=== PATIENT | female | born 2000 | race Caucasian/White ===

== ENCOUNTER 2019-10-27 09:20 | Observation (INO) | payer OTHER, SELFPAY ==
--- NOTE | 2019-10-27 09:45 | OBADM ---
This patient, Kathryn Moran, admitted to the OB room Labor/Delivery/Recovery 106 for observation. Patient/family oriented to hospital policies and general routines including ID bracelet, bed and alarms, visiting hours, pain management, procedures, bathroom and other care routines, personal items, smoking policy, room service/diet, and visiting hours. Patient/Family are encouraged to report perceived risks to care and to ask questions if they do not understand what they are told or what they should do.
[2019-10-27 10:00] VITALS: BP 104/67; PULSE 85
[2019-10-27 10:22] VITALS: BMI 25.7
[2019-10-27 10:26] LABS: Add Urine Microscopic? NO; Appearance Urine Clear (Clear); Bilirubin Urine Negative (Negative); Blood Urine Negative (Negative); Color Urine Yellow (Yellow); Glucose Urine UA Negative (Negative); Ketones Urine Negative (Negative); Leukocyte Esterase Ur Negative LEU/UL (Negative); Nitrate Urine Negative (Negative); Protein Urine Negative (Negative); Specific Grav Ur 1.011 (1.001-1.035); Urobilinogen Urine Negative mg/dL (<2.0)
[2019-10-27 10:30] VITALS: BP 98/62; PULSE 85
--- NOTE | 2019-10-27 11:42 | PC.NURSE ---
Addendum entered by Lety Edwards RN 10/27/19 11:44: above note was entered for time 1100. Original Note: adelina yanm reported pt admission for r/o ROM and contractions. report given for negative ROM plus, and reactive tracing. discharge order received.
--- NOTE | 2019-10-30 13:29 | PM.OBTRLD ---
OB - Triage/Final Diagnosis Visit Information Date of evaluation: 10/27/19 Reason for evaluation: threatened labor Evaluation Laboratory results: Laboratory Tests 10/27/19 10:13 Urine Color Yellow Urine Appearance Clear Urine pH 7.0 Ur Specific [place] 1.011 Urine Protein Negative Urine Glucose (UA) Negative Urine Ketones Negative Ur Blood (Man) Negative Urine Nitrate Negative Urine Bilirubin Negative Urine Urobilinogen Negative Leukocyte Esterase Rfl Negative
== END 2019-10-27 11:30 | disposition home or self-care (01) ==
PROVIDERS: Advanced Practice Midwife; Admitting Provider Obstetrics & Gynecology; PCP Physician Assistant; Visit Provider Obstetrics & Gynecology
DX: O47.03 False labor before 37 completed weeks of gestation, third trimester (principal); Z3A.34 34 weeks gestation of pregnancy
CPT/HCPCS: 81003; 84112; G0378; G0379

== ENCOUNTER 2019-12-05 18:52 | Inpatient (IN) | payer OTHER, SELFPAY ==
[2019-12-05 20:00] VITALS: TEMP 35.5
[2019-12-05 20:01] LABS: Basophils Absolute Auto 0.1 K/mm3 (0.0-0.1); Basophils Percent Auto 0.6 % (0.2-1.2); Eosinophils Absolute Auto 0.2 K/mm3 (0-0.3); Eosinophils Percent Auto 1.6 % (0-4.4); Hematocrit 33.2 % (37.0-47.0); Hemoglobin 11.1 g/dL (12.0-15.0); Immature Granulocyte Absolute 0.04 K/mm3 (0.00-0.031); Immature Granulocyte Percent A 0.4 % (0-0.5); Lymphocytes Absolute Auto 1.78 K/mm3 (0.9-3.2); Mean Corpuscular HGB Conc 33.4 g/dl (32-36); Mean Corpuscular Volume 86.7 fl (80-100); Mean Platelet Volume 10.9 fl (7.4-10.4); Monocytes Absolute Auto 0.6 K/mm3 (0.1-0.6); Monocytes Percent Auto 6.4 % (2.6-8.5); Neutrophils Absolute Auto 6.8 K/mm3 (1.3-6.7); Platelet Count Result 194 k/mm3 (150-375); Red Blood Count 3.83 M/mm3 (4.2-5.4); Red Cell Distribution Width 12.7 % (11.5-14.5); White Blood Count 9.4 K/mm3 (4.5-10.0)
[2019-12-05] MEDS: DINOPROSTONE 10 MG VAG INSERT VAGINAL (20:02)
[2019-12-05 20:06] VITALS: BP 119/67; PULSE 54
[2019-12-05 20:31] VITALS: BP 103/54; PULSE 62
[2019-12-05 20:43] VITALS: BMI 26.7
--- NOTE | 2019-12-05 20:44 | LDADM ---
This patient, Kathryn Moran, was admitted to Labor/Delivery/Recovery 102 on 12/05/19 at 18:52. Plans for labor, pain management and were discussed with patient. Patient/family oriented to hospital policies and general routines including ID bracelet, bed and alarms, visiting hours, pain management, procedures, bathroom and other care routines, personal items, smoking policy, room service/diet and guest tray routines, security routines, and visiting hours. Patient/Family are encouraged to report perceived risks to care and to ask questions if they do not understand what they are told or what they should do. See OBIX for further documentation.
[2019-12-05] MEDS: AMPICILLIN 2 GM/NS 100 ML 2 GM/100 ML BAG IVPB (20:58)
[2019-12-05] MEDS: LACTATED RINGERS 1,000 ML 125 ML IV CONT (20:58)
--- NOTE | 2019-12-05 21:00 | WPDANESEPPF ---
Anes - Initial Pre Proc Eval Procedure: labor epidural Date/Time: 12/05/19 21:00 Surgeon: Genesis Sorto MD Pre Op Diagnosis: labor pain Pre Op Diagnosis: Induction of Labor Patient Data Age: 19 Gender: F Height: 1.66 m Weight: 74 kg Last Vital Signs Pulse 62 12/05/19 20:31 BP 103/54 L 12/05/19 20:31 Allergies Allergy/AdvReac Type Severity Reaction Status Date / Time No Known Allergies Allergy Verified 11/06/19 12:32 Home Medications Medication Instructions Recorded Confirmed Type PNV cmb#95-ferrous fumarate-FA 1 tablet PO DAILY 11/06/19 11/06/19 History [] lansoprazole [Prevacid] 15 mg PO DAILY 11/06/19 12/05/19 History Laboratory Tests 12/05/19 12/05/19 19:52 19:52 WBC 9.4 K/mm3 K/mm3 (4.5-10.0) RBC 3.83 M/mm3 L M/mm3 (4.2-5.4) Hgb 11.1 g/dL L g/dL (12.0-15.0) Hct 33.2 % L % (37.0-47.0) MCV 86.7 fl fl (80-100) MCH 29.0 pg pg (26-34) MCHC 33.4 g/dl g/dl (32-36) RDW 12.7 % % (11.5-14.5) Plt Count 194 k/mm3 k/mm3 (150-375) MPV 10.9 fl H fl (7.4-10.4) Immature Gran % (Auto) 0.4 % % (0-0.5) Neut % (Auto) 72.0 % % (45.5-73.1) Lymph % (Auto) 19.0 % % (18.3-44.2) [place] % (Auto) 6.4 % % (2.6-8.5) Eos % (Auto) 1.6 % % (0-4.4) Baso % (Auto) 0.6 % % (0.2-1.2) Lymph # (Auto) 1.78 K/mm3 K/mm3 (0.9-3.2) [place] # (Auto) 0.6 K/mm3 K/mm3 (0.1-0.6) Eos # (Auto) 0.2 K/mm3 K/mm3 (0-0.3) Baso # (Auto) 0.1 K/mm3 K/mm3 (0.0-0.1) Abs Immat Gran (auto) 0.04 K/mm3 H K/mm3 (0.00-0.031) Absolute Neuts (auto) 6.8 K/mm3 H K/mm3 (1.3-6.7) Absolute Nucleated RBC 0.0 K/mm3 K/mm3 (0.0-0.012) Nucleated RBC % 0.0 % % (0.0-0.2) RPR Pending Patient hx anesthesia problems: none Family hx anesthesia problems: none [facility] Past Medical History Medical History (Updated 12/05/19 @ 21:01 by Kalyan Dsouza CRNA) Heart murmur Psoriasis Family History Family History Other Unknown family medical history Social History Social History Smoking status: Never smoker Substance use: never Spiritual care concerns: No Anes - Eval Final PreProcedure Day of Procedure 12/05/19 21:00 Patient weight: normal Heart: regular rate and rhythm Lungs: clear to auscultation and normal air movement Airway: Mallampati scale class II Neurological: alert and oriented ASA classification: II Anesthesia type and monitoring: regional epidural and standard monitoring Informed Consent: The patient's anesthetic plan and its attendant risks and benefits were discussed with the patient/family/POA. Questions were solicited and answers provided to the satisfaction of the patient/family/POA.
[2019-12-05 21:01] VITALS: BP 102/51; PULSE 64
[2019-12-05 21:31] VITALS: BP 104/48; PULSE 64
[2019-12-05 22:01] VITALS: BP 101/44; PULSE 62
[2019-12-06] VITALS (71 sets, daily range): BP systolic 84–132; BP diastolic 49–106; PULSE 57–294; RESP 14–18; TEMP 36.5–36.8; O2SAT 98–100
[2019-12-06] MEDS: LACTATED RINGERS 1,000 ML 125 ML IV CONT ×2 (01:13→02:30)
[2019-12-06] MEDS: AMPICILLIN 1 GM/NS 50 ML 1 GM/50 ML BAG IVPB (01:31)
--- NOTE | 2019-12-06 04:12 | PM.OBPRVD ---
OB - Delivery Note Procedure Delivery date: 12/06/19 Procedure: vaginal delivery Induction method: AROM and per misoprostol protocol Delivery monitor: external FHT and external uterine Route of delivery: Laceration description: Vaginal - 1st Degree (right) Delivery repair: vicryl Specimen: No Estimated blood loss (mL): 197 Anesthesia type: Epidural Disposition: other (vaginal delivery) Complications: mother and baby in stable condition Baby Date of : 12/06/19 Time of : 03:51 Weeks of gestation at delivery: 40 Infant gender: Male Weight (pounds): 7 Weight (ounces): 8 presentation: vertex position: Right Mentum Anterior Placenta delivery description: Spontaneous cord vessel description: 3 Vessels, Nuchal Cord, Loose, Reduced and Clamped/Cut score one minute: 9 score five minutes: 9
[2019-12-06] MEDS: OXYTOCIN 30 UNITS/NS 500 ML 30 UNITS/500 ML BAG 125 UNITS IV CONT (05:00)
[2019-12-06] MEDS: BENZOCAINE 20% AER SPR (*SP) 56 GM CAN 1 SPRAY TOPICAL (06:39)
[2019-12-06] MEDS: WITCH HAZEL 40 PADS 1 PAD TOPICAL (06:39)
[2019-12-06 07:26] LABS: Rapid Plasma Reagin Non-Reactive (NonReactive)
--- NOTE | 2019-12-06 07:43 | PC.NURSE ---
Patient transferred to post room #280. Support person present. Oriented to unit, room, information board, rooming in, admission packet and security measures. Patient verbalizes understanding.
[2019-12-06] MEDS: DOCUSATE SODIUM 100 MG CAPSULE PO ×2 (09:18→16:41)
[2019-12-06] MEDS: IBUPROFEN 600 MG TABLET PO ×2 (09:18→16:40)
[2019-12-06] MEDS: ACETAMINOPHEN 325 MG TABLET 650 MG PO (13:38)
[2019-12-06] MEDS: POLYSACCHARIDE IRON COMPLEX 150 MG CAPSULE PO (16:41)
[2019-12-07] MEDS: ACETAMINOPHEN 325 MG TABLET 650 MG PO (05:09)
[2019-12-07] MEDS: IBUPROFEN 600 MG TABLET PO (05:10)
[2019-12-07 05:43] LABS: Hematocrit 25.6 % (37.0-47.0); Hemoglobin 8.4 g/dL (12.0-15.0)
[2019-12-07 08:00] VITALS: BP 97/49; PULSE 63; RESP 18; TEMP 36.8
--- NOTE | 2019-12-07 08:09 | P.PNOB_ITS ---
OB - PN: Subj Subjective Date/time seen: 12/07/19 08:09 Patient comments: no complaints, pain well controlled, incisional pain, tolerating diet and flatus present OB - PN: Obj Data Labs CBC & Chem 7: 12/07/19 05:06 Labs: Laboratory Results - last 24 hr 12/07/19 05:06 Hgb 8.4 L Hct 25.6 L OB - PN A/P Plan day: 1 Plan: routine care Comments: No problems, routine care, to d/c Time Spent With Patient Time: Total time spent is greater than 50% in coordination of care (as documented) at patient's floor/unit and/or counseling patient: Exam Const: General: comfortable, no acute distress and alert Resp: Effort & Inspection: normal respiratory effort Auscultation: no crac kles, no rales and no rhonchi Cardio: Rate: regular rate Heart sounds: no click, no murmurs and no rubs GI: Inspection: non-distended GI Palp: No Tenderness to palpation present (GI) Auscultation: normal bowel sounds Other: Incision - CDI Extrem: General: normal to inspection, no pedal edema and no calf tenderness
--- NOTE | 2019-12-07 08:10 | PM.OBDSVD ---
DS: Discharge Diagnosis Discharge Diagnosis (1) Term delivered: Code(s): O80 - Encounter for full-term uncomplicated delivery Status: Acute OB - DS: Summary OB Procedures : None OB Procedures Intrapartum: Spontaneous Vag Delivery OB Procedures: : None Peripartum Data Delivery Method: Natural Vaginal complications: none Status at Discharge Functional status at discharge: independent ambulation Time Spent with Patient Time attestation: Total time spent providing and/or coordinating discharge services: DS: Data Data Completed and Pending Labs on day of discharge: Labs from last 24 hours 12/07/19 05:06 Hgb 8.4 L Hct 25.6 L Discharge Plan Discharge Discharging Clinician: Genesis Sorto Patient Disposition: Home, Self-Care Activity: pelvic rest Diet: regular Patient Instructions: Antibiotic Form Stand Alone Forms: General Discharge Information Follow-up/Referrals: Genesis Sorto MD [Physician] - Discharge Medications: Continued PNV cmb#95-ferrous fumarate-FA [] 28 mg iron- 800 mcg Tablet 1 tablet PO DAILY RF: 0 lansoprazole [Prevacid] 15 mg Capsule,Delayed Release(Dr/Ec) 15 mg PO DAILY RF: 0 Date of admission: 12/05/19 18:52 Primary Care Provider: Lisa,Vikram Admitting Provider: Genesis Sorto Attending physician on admission: Genesis Sorto
[2019-12-07] MEDS: POLYSACCHARIDE IRON COMPLEX 150 MG CAPSULE PO (08:49)
[2019-12-07] MEDS: DOCUSATE SODIUM 100 MG CAPSULE PO (08:49)
--- NOTE | 2019-12-07 09:50 | WPDANLDPN2 ---
Anes-Prog Note L&D Date/Time: 12/07/19 09:50 Comfortable throughout: labor and delivery Neuraxial method: epidural Epidural/Spinal procedure site: clean & non-tender Neuro status: Neuro function grossly intact. Cardiovascular status: normal Respiratory status: normal Airway patency: baseline Mental status: baseline Post-Op hydration status: normal Vital Signs: Last Vital Signs Temp 36.7 C 12/06/19 21:00 Pulse 61 12/06/19 21:00 Resp 14 12/06/19 21:00 BP 101/53 L 12/06/19 21:00 Pulse Ox 98 12/06/19 21:00 Post-procedural complaints: none Patient feedback: Patient satisfied with anesthetic care.
--- NOTE | 2019-12-07 10:00 | PC.NURSE ---
Patient viewed the discharge video Mother & Baby Care, The First Two Weeks . Patient was given the opportunity and encouraged to ask questions. Patient verbalized understanding of information shared and has been given the mother/baby guide for home reference.
--- NOTE | 2019-12-07 15:05 | PC.NURSE ---
Self care and infant care discharge instructions given to pt. including follow up visit date and time. Mother verbalized understanding. No questions or concerns verbalized.
[2019-12-08 10:19] VITALS: BP 102/55; PULSE 86; RESP 16; TEMP 36.7; O2SAT 99
== END 2019-12-07 16:30 | disposition home or self-care (01) | DRG 807 ==
LOC: ANHLDR 19:03 → ANHOB2 12-06 07:52
PROVIDERS: Advanced Practice Midwife; Admitting Provider Obstetrics & Gynecology; PCP Physician Assistant; Visit Provider Obstetrics & Gynecology
DX: O99.824 Streptococcus B carrier state complicating childbirth (principal); Z37.0 Single live birth; Z3A.40 40 weeks gestation of pregnancy; O69.81X0 Labor and delivery complicated by cord around neck, without compression, not applicable or unspecified; O70.0 First degree perineal laceration during delivery; O99.72 Diseases of the skin and subcutaneous tissue complicating childbirth; L40.9 Psoriasis, unspecified
CPT/HCPCS: 36415; 85014; 85018; 85025; 86592; 86850; 86900; 86901; A9270; J0290; J2590; J2795; J3010; J7120

== ENCOUNTER 2020-04-24 11:54 | Emergency (ER) | payer OTHER, SELFPAY ==
[2020-04-24 12:01] VITALS: BP 127/71; PULSE 94; RESP 16; TEMP 36.6; O2SAT 100
--- NOTE | 2020-04-24 12:07 | ED.URI ---
HPI - URI/Sore Throat General Chief Complaint: Upper Respiratory Infection Stated Complaint: sinus congestion/body aches/tired Time Seen by Provider: 04/24/20 11:58 Source: patient Mode of arrival: ambulatory Limitations: no limitations History of Present Illness HPI Narrative: 19-year-old female presents to [facility] with complaints of fatigue, body aches, sinus pressure and nasal congestion for the past 3 days. Patient has been taking [id number] Tylenol with minimal relief. Patient denies sick contacts. Patient denies recent travel. Patient is a non-smoker. Patient denies fever, chills, cough, shortness of breath or wheezing. MD elicited complaint: rhinorrhea, nasal congestion and sinus pain Onset (ago): day(s) (3) Able to tolerate fluids by mouth: Yes Exacerbating factors: nothing Treatments prior to arrival: acetaminophen Related Data Home Medications Medication Instructions Recorded Confirmed norethindrone-e.estradiol-iron tablet 04/24/20 [05/29 (28)] Allergies Allergy/AdvReac Type Severity Reaction Status Date / Time No Known Allergies Allergy Verified 11/06/19 12:32 Review of Systems Constitutional: Constitutional: Denies chills, Reports fatigue and Denies fever(s) ENT: Denies dysphagia, Denies dizziness, Denies epistaxis, Reports nasal congestion and Denies sore throat Cardiovascular: Cardiovascular: Denies chest pain, Denies rapid heart rate and Denies radiating jaw, neck or arm pain Respiratory: Respiratory: Denies chest congestion, Denies cough, Denies dyspnea and Denies wheezing Gastrointestinal: Gastrointestinal: Denies bloating, Denies constipation, Denies diarrhea, Denies nausea and Denies vomiting Integumentary/Breasts: Skin/Breast: Denies rash Neurologic: Denies vertigo, Denies dizziness, Denies syncope and Denies focal weakness Endocrine: Endocrine: Reports fatigue PMFSH Past Medical History Medical History Heart murmur Psoriasis Family History Family History Other Unknown family medical history Social History Social History Smoking status: Never smoker Substance use: never Spiritual care concerns: No Comments At time of signature, I agree with nursing past medical, surgical, social and family history. There is no relevant family history pertinent to the presenting complaint. Exam Const: General: no acute distress and alert Nutritional Appearance: well nourished Orientation/consciousness: patient oriented x3 HENMT: Head: normal to inspection Ears: TM's normal bilaterally General nose exam: Normal nares present Face and sinus: sinuses nontender Mouth: Yes lip normal and Yes moist mucous membranes Throat: posterior oropharynx normal and uvula midline Neck: Neck: normal visual inspection and no lymphadenopathy Resp: Effort & Inspection: normal respiratory effort and not tachypneic Auscultation: clear to auscultation bilaterally, no crackles and lung sounds not diminished Cardio: Rate: regular rate Rhythm: regular rhythm Skin: General skin exam: normal color, no jaundice and no pallor Rashes: no rashes Wounds: no wounds Neuro: General: patient oriented x3, moves all extremities, no meningeal signs and no focal motor deficits Speech: normal speech Psych: Appearance: grossly normal Mental Status: mental status grossly normal Affect: normal affect Attitude: cooperative Thought content: Yes Normal thought content present Course Vital Signs Vital signs: Vital Signs Temperature 36.6 C 04/24/20 12:01 Pulse Rate 94 04/24/20 12:01 Respiratory Rate 16 04/24/20 12:01 Blood Pressure 127/71 04/24/20 12:01 Pulse Oximetry 100 04/24/20 12:01 Temperature 36.6 C 04/24/20 12:01 Pulse Rate 94 04/24/20 12:01 Respiratory Rate 16 04/24/20 12:01 Blood Pressu
== END 2020-04-24 12:25 | disposition home or self-care (01) ==
PROVIDERS: Emergency Provider Nurse Practitioner Family; PCP Physician Assistant
DX: J06.9 Acute upper respiratory infection, unspecified (principal); Z20.828 Contact with and (suspected) exposure to other viral communicable diseases; R01.1 Cardiac murmur, unspecified
CPT/HCPCS: 87804; 99213; G0463

== ENCOUNTER 2020-04-24 12:21 | Outpatient (NON) | payer OTHER, SELFPAY ==
[2020-04-24 22:31] LABS: SARS-CoV-2 RNA PCR Positive
== END 2020-04-24 12:22 ==
LOC: ANHCOVIDDT 12:22
PROVIDERS: PCP Physician Assistant; Visit Provider Nurse Practitioner Family
DX: U07.1 COVID-19 (principal)
CPT/HCPCS: 87635; C9803; U0003

== ENCOUNTER 2021-04-30 13:14 | Outpatient (CLI) | payer OTHER, SELFPAY ==
--- NOTE | ~2021-04-30 | US_ITS ---
EXAMINATION: US pelvic complete w TV DATE: 04/30/2021 14:07 INDICATION: Pelvic and perineal pain Comparison:No prior studies for comparison. TECHNIQUE: Multiple transabdominal and endovaginal sonographic images of the pelvis performed. FINDINGS: The uterus measures 8.3 x 5.2 x 4.2 cm. There is an IUD located in the endometrium. The end ometrial complex measures 5 mm. The right ovary measures 2.4 x 1.6 x 2 cm and the left ovary measures 2.5 x 2 x 1.9 cm. There are sm all follicles in each ovary. Normal doppler signal in both ovaries. There is no free fluid in the pelvis. There are no abnormal masses seen on either side. IMPRESSION: 1. Unremarkable pelvic ultrasound. IUD in expected position located in the endometrium. Reviewed, dictated and finalized at location A. [employer] MANAGER IMPRESSION: 1. Unremarkable pelvic ultrasound. IUD in expected position located in the endo metrium.
== END 2021-04-30 13:15 | disposition home or self-care (01) ==
LOC: ANHIMG 13:18
PROVIDERS: PCP Physician Assistant; Visit Provider Advanced Practice Midwife
DX: R10.2 Pelvic and perineal pain (principal); Z97.5 Presence of (intrauterine) contraceptive device
CPT/HCPCS: 76830; 76856

== ENCOUNTER → 2021-05-14 09:53 | Outpatient (CLI) | payer OTHER, SELFPAY ==
[2021-05-15 14:36] LABS: SARS-CoV-2 RNA PCR Positive
== END ==
PROVIDERS: PCP Physician Assistant; Visit Provider Physician Assistant
DX: U07.1 COVID-19 (principal)
CPT/HCPCS: C9803; U0003; U0005

== ENCOUNTER 2023-07-14 08:54 | Emergency (ER) | payer OTHER, SELFPAY ==
[2023-07-14 09:09] VITALS: BP 110/63; PULSE 83; RESP 16; TEMP 36.8; O2SAT 100
--- NOTE | 2023-07-14 09:13 | ED.URI ---
HPI - URI/Sore Throat General Chief Complaint: Upper Respiratory Infection Stated Complaint: Sinus/Bodyaches Time Seen by Provider: 07/14/23 09:13 Source: patient Mode of arrival: ambulatory Limitations: no limitations History of Present Illness HPI Narrative: 22-year-old female presents with complaint of nasal congestion, sinus pressure, bilateral ear pain and pressure, postnasal drainage intermittent sore throat and coughing for the last 7-8 days. Reports over the past 2 days has had low-grade fever with worsening of sinus symptoms. Patient taking Mucinex, Benadryl without relief of symptoms. Patient concerned for bacterial sinusitis. All systems reviewed and negative except as noted above. Related Data Home Medications Medication Instructions Recorded Confirmed norethindrone 1 mg-ethinyl 1 tablet PO DAILY 04/24/20 07/14/23 estradiol 20 mcg (21)-iron 75 mg (7) tablet (05/29 (28)) Allergies Allergy/AdvReac Type Severity Reaction Status Date / Time No Known Allergies Allergy Verified 07/14/23 09:07 Review of Systems Review of Systems: CONSTITUTIONAL: Denies fever, chills, or sweats. EYES: Denies visual changes, redness, or discharge. ENT: Reports rhinorrhea, congestion, sinus pressure, sore throat, and otalgia. CARDIOVASCULAR: Denies chest pain, palpitations, or edema. RESPIRATORY: reports cough. Denies dyspnea. GASTROINTESTINAL: Denies abdominal pain, nausea, vomiting, or diarrhea. GENITOURINARY: Denies dysuria or hematuria. SKIN: Denies rash or itching. MUSCULOSKELETAL: Denies back pain, joint pain, or myalgia. NEUROLOGIC: Denies headache, numbness, or weakness. PSYCHIATRIC: Denies anxiety or depression. All other systems reviewed are negative, except as documented in HPI. [facility] Past Medical History Medical History Heart murmur Psoriasis Family History Family History (System 04/25/20 @ 14:45 by Tawny Zavaleta) Other Unknown family medical history Social History Social History (System 04/25/20 @ 14:45 by Tawny Zavaleta) Smoking status: Never smoker Substance use: never Spiritual care concerns: No Comments At time of signature, agree with nursing past medical, surgical, social and family history. There is no relevant family history pertinent to the presenting complaint. Exam Narrative: GENERAL: This is a well-nourished, well-developed patient, in no apparent distress. HEAD: normocephalic, atraumatic. EYES: PERRL. Sclera clear/white. Vision is grossly intact. EARS: External ears normal, auditory canals clear and without drainage, Fluid bilateral TMs without erythema or perforation. Hearing grossly intact. NOSE: External nose normal with moderate congestion, erythema and swelling to bilateral nares with purulent drainage. THROAT: Mucous membranes moist, Erythema with postnasal drainage. No swelling or exudates. NECK: Neck supple, non-tender without lymphadenopathy, masses or thyromegaly. CARDIOVASCULAR: Regular rate and rhythm without murmurs, gallops, or rubs. RESPIRATORY: Clear to auscultation. Breath sounds equal bilaterally. No wheezes, rales, or rhonchi. SKIN: warm, Dry, intact with no suspicious lesions or rash, good texture and turgor. NEURO: awake, alert, and oriented to person, place and time. There were no obvious focal neurologic abnormalities. EXTREMITIES: No joint tenderness, effusion, or edema noted. Course Course Level of Care: Express Care Visit Vital Signs Vital signs: Vital Signs Temperature 36.8 C 07/14/23 09:09 Pulse Rate 83 07/14/23 09:09 Respiratory Rate 16 07/14/23 09:09 Blood Pressure 110/63 07/14/23 09:09 Pulse Oximetry 100 07/14/23 09:09 Oxygen Delivery Room Air 07/14/23 09:09 Temperature 36.8 C 07/14/23 09:09 Pulse Rate 83 07/14/23 09:09 Respiratory Rate 16 07/14/23 09:09 Blood Pressure 110/63 07/14/23 09:
== END 2023-07-14 09:28 | disposition home or self-care (01) ==
PROVIDERS: Emergency Provider Nurse Practitioner Family; PCP Hospitalist
DX: J01.90 Acute sinusitis, unspecified (principal); Z20.822 Contact with and (suspected) exposure to COVID-19; R01.1 Cardiac murmur, unspecified; L40.9 Psoriasis, unspecified
CPT/HCPCS: 87426; 87804; 99213; G0463

== ENCOUNTER 2024-05-23 12:07 | Emergency (ER) | payer OTHER, SELFPAY ==
[2024-05-23 12:18] VITALS: BP 107/77; PULSE 80; RESP 16; TEMP 35.9; O2SAT 99
--- NOTE | 2024-05-23 12:36 | ED_ITS ---
HPI - URI/Sore Throat General Chief Complaint: Upper Respiratory Infection Stated Complaint: congestion,bodyaches Time Seen by Provider: 05/23/24 12:37 Source: patient, RN notes reviewed and old records reviewed Mode of arrival: ambulatory Limitations: no limitations History of Present Illness HPI Narrative: 23-year-old female presents to the [facility] with complaints of sinus congestion body aches headache and as well as a runny nose that started , 5 days ago. Has tried [id number] products. Concerned because son was flu A positive. Treatments prior to arrival: cold medicine Related Data Home Medications ?Medication ?Instructions ?Recorded ?Confirmed ?Last Taken ?Type norgestimate 0.25 mg-ethinyl 1 tablet PO .QD 05/23/24 05/23/24 Unknown History estradiol 35 mcg tablet (Piedad) Allergies Allergy/AdvReac Type Severity Reaction Status Date / Time No Known Allergies Allergy Verified 05/23/24 12:14 Review of Systems Review of Systems: All systems reviewed & are unremarkable except as noted in HPI and below Constitutional: Constitutional: Reports as per HPI and Reports body ache(s) ENT: Reports as per HPI Cardiovascular: Cardiovascular: Reports no additional cardiovascular complaints, Denies chest pain and Denies dyspnea Respiratory: Respiratory: Reports as per HPI, Denies chest congestion, Reports cough and Denies dyspnea Musculoskeletal: Musculoskeletal: Reports no additional musculoskeletal complaints Integumentary/Breasts: Skin/Breast: Reports system reviewed and no additional complaints, except as docu PMFSH Past Medical History Medical History Psoriasis Heart murmur Family History Family History Other Unknown family medical history Social History Social History Smoking status: Never smoker Substance use: never Spiritual care concerns: No Comments At the time of my signature, I reviewed and agree with the nursing past medical, surgical, social, and family history. There is no relevant family history pertinent to the patient complaint. Exam Const: General: cooperative, healthy appearing, comfortable, no acute distress, well developed, alert and well nourished Nutritional Appearance: well nourished Orientation/consciousness: patient oriented x3 Limitations: no limitations HENMT: Head: normal to inspection Ears: hearing grossly normal bilaterally, external ears normal, TM's normal bilaterally, EAC's normal, mastoids normal and no periauricular adenopathy Mouth: Yes Normal oral and palatal mucosa present, Yes lip normal, Yes tongue normal and Yes moist mucous membranes Throat: posterior oropharynx normal, uvula midline and no uvular edema Eyes: General: appearance normal, both eyes and all related structures Alignment and Position: alignment normal Neck: Neck: normal visual inspection, full ROM, no lymphadenopathy and no meningeal signs Chest: Chest palpation & inspection: normal inspection of the chest Resp: Effort & Inspection: normal respiratory effort and able to speak in complete sentences Auscultation: clear to auscultation bilaterally, no crackles, no rales, no rhonchi and no wheezes Cardio: Rate: regular rate Skin: General skin exam: normal color and no rashes or lesions noted Neuro: General: patient oriented x3, gait normal, moves all extremities and no meningeal signs Cognition (Neuro): normal cognition Speech: normal speech Gait exam (Neuro): Normal gait present Extrem: General: normal to inspection, full ROM, capillary refill normal and normal gait Psych: Appearance: grossly normal and well kempt Mental Status: mental status grossly normal Speech and movement: Normal speech and movement present and Clear speech present Affect: normal affect Attitude: cooperative Course Course Level of Care: Express Care Visit Vital Signs Vital signs: Vital Signs Temperature 96.6 F L 05/23/24 12:18 Pulse Rate 80 05/23/24 12:18 Respiratory Rate 16 05/23/24 12:18 Blood Pressure 107/77 05/23/24 12:18 Pulse Oximetry 99 05/23/24 12:18 Oxygen Delivery Room Air 05/23/24 12:18 Temperature 96.6 F L 05/23/24 12:18 Pulse Rate 80 05/23/24 12:18 Respiratory Rate 16 05/23/24 12:18 Blood Pressure 107/77 05/23/24 12:18 Pulse Oximetry 99 05/23/24 12:18 Oxygen Delivery Room Air 05/23/24 12:18 Reviewed MDM - URI/Sore Throat MDM Narrative Medical decision making narrative: Patient sitting comfortably in exam room. Nontoxic, vitals stable. Patient in no acute distress. Patient presents with 5 day history of URI symptoms. Flu A negative, flu B negative. COVID positive. Patient with no acute findings, appropriate for outpatient treatment and follow-up Discharge instructions reviewed with patient, as well as provided in writing per nursing staff. The instructions also include specific and strict return/GO TO THE ER as well as f/u information. All questions have been answered, and the patient deny any further questions with discharge and discharge plan. Some parts of this dictation were generated by voice recognition software and may contain typographical and/or grammatical inaccuracies. Differential Diagnosis Differential diagnosis: Likely upper respiratory infection, viral infection and influenza Lab Data Labs: Lab Results 05/23/24 Range/Units 12:41 POC Influenza A Ag Negative (Negative) POC Influenza B Ag Negative (Negative) POC SARS CoV-2 Ag Positive (Negative) Reviewed Critical Care Time Critical Care Time Critical Care Time: No Discharge Plan Discharge Clinical Impression: COVID-19 Patient Disposition: Home, Self-Care Condition: Stable Instructions: Antibiotic Form, COVID-19 (Coronavirus Disease 2019) (ED), COVID- 19: Slow the Coronavirus Spread (ED) Additional Instructions: Your rapid COVID test was positive Your rapid flu test was negative Your symptoms are due to a viral illness, which is not treated with antibiotics. Typically viral infections last 7-10 days, can linger for couple of weeks. It is very important to treat your symptoms. Drink plenty of water, Gatorade, Pedialyte, ice pops or Jell-O. -Alternate Tylenol and Motrin per package directions for fever or pain. You can alternate every 4 hours -Antihistamine medication such as Zyrtec/Claritin/Nina during the day can help improve symptoms. -doing daily nasal irrigations can help relieve pressure your sinuses. Things like a Neti pot -Use Flonase twice a day for 5 days then daily to help reduce the inflammation and dry up your sinuses. -You can also use Mucinex. Be sure to drink plenty of water with this medication at least 8 ounces with every dose and it is important to drink 8 to 10 glasses of water per day. Water is a natural decongestant -Eat and drink things that are easy to swallow, like tea or soup, or popsicles. -Oral rinses such as: Salt water gargles and/or may use topical anesthetic (eg. Chloraseptic spray) or lozenges to relieve dryness or throat pain). -Frequent hand washing or hand behavioral health director is one of the best ways to prevent spread of infection. -Using a vaporizer or humidifier at night will also help thin secretions and help with coughing up phlegm. -Follow up with primary care provider in 7-10 days if condition is not improving - For new or worsening symptoms go directly to the nearest ER Patient Language: Uruguayan Prescriptions: No Action norgestimate-ethinyl estradiol [Piedad] 0.25-35 mg-mcg tablet 1 tablet PO .QD Follow-up/Referrals: Ryley,Travis Alcala Jr., MD [Primary Care Provider] - 1 Week ([facility] care follow up ) Stand Alone Forms: Work/School Release IP Time of Disposition: 12:42
[2024-05-23 12:43] LABS: EDCOVIDSCREEN Positive (Negative)
[2024-05-23 12:44] LABS: EDINFLUASCREEN Negative (Negative); EDINFLUBSCREEN Negative (Negative)
== END 2024-05-23 12:46 | disposition home or self-care (01) ==
PROVIDERS: Emergency Provider Nurse Practitioner; PCP Hospitalist
DX: U07.1 COVID-19 (principal); L40.9 Psoriasis, unspecified; R01.1 Cardiac murmur, unspecified
CPT/HCPCS: 87426; 87804; 99212; G0463

== ENCOUNTER 2024-08-31 08:26 | Emergency (ER) | payer BC, SELFPAY ==
[2024-08-31 08:35] VITALS: BP 115/60; PULSE 87; RESP 14; TEMP 36.8; O2SAT 100
[2024-08-31 08:59] LABS: EDCOVIDSCREEN Negative (Negative); EDINFLUASCREEN Negative (Negative); EDINFLUBSCREEN Negative (Negative); EDSTREPNEGPOS1 Negative (Negative)
--- NOTE | 2024-08-31 09:08 | ED_ITS ---
HPI - URI/Sore Throat General Chief Complaint: Upper Respiratory Infection Stated Complaint: Bodyaches/Sore Throat Time Seen by Provider: 08/31/24 09:00 Source: patient and RN notes reviewed Mode of arrival: ambulatory Limitations: no limitations History of Present Illness HPI Narrative: 24-year-old female presents Express Care complaining of upper respiratory symptoms for 4 days. Patient reports cough, congestion, sore throat, earache, body aches, sinus pressure. Patient has been taking Tylenol and Mucinex for symptoms with some relief. Patient denies any fevers, chills, chest pain, shortness of breath. Patient denies any sick contacts. Related Data Allergies Allergy/AdvReac Type Severity Reaction Status Date / Time No Known Allergies Allergy Verified 08/31/24 08:38 Review of Systems Review of Systems: CONSTITUTIONAL: Denies fever, chills, or sweats. Positive for body aches EYES: Denies visual changes, redness, or discharge. ENT: Denies rhinorrhea. Positive for congestion, sore throat, and otalgia. CARDIOVASCULAR: Denies chest pain, palpitations, or edema. RESPIRATORY: Positive for cough. Negative for dyspnea. GASTROINTESTINAL: Denies abdominal pain, nausea, vomiting, or diarrhea. GENITOURINARY: Denies dysuria or hematuria. SKIN: Denies rash or itching. MUSCULOSKELETAL: Denies back pain, joint pain, or myalgia. NEUROLOGIC: Denies headache, numbness, or weakness. PSYCHIATRIC: Denies anxiety or depression. All other systems reviewed are negative, except as documented in HPI. PMFSH Past Medical History Medical History Psoriasis Heart murmur Family History Family History Other Unknown family medical history Social History Social History Smoking status: Never smoker Substance use: never Spiritual care concerns: No Comments At the time of my signature, I reviewed and agree with the nursing past medical, surgical, social, and family history. There is no relevant family history pertinent to the patient complaint. Exam Narrative: GENERAL: This is a well-nourished, well-developed adult, in no apparent distress. They are non ill-appearing, nontoxic appearing. HEAD: normocephalic, atraumatic. EYES: Sclera clear/white. Conjunctivae normal bilaterally. Vision is grossly intact. Extraocular movements intact. EARS: External ears normal, auditory canals clear and without drainage, TMs normal without perforation. Hearing grossly intact. NOSE: External nose normal with no obvious nasal discharge, nasal turbinates are erythematous bilaterally, no rhinorrhea. THROAT: Mucous membranes moist, posterior pharynx erythemic without swelling. Postnasal drip present. Uvula midline. NECK: Neck supple, non-tender without lymphadenopathy, masses or thyromegaly. CARDIOVASCULAR: Regular rate and rhythm without murmurs, gallops, or rubs. RESPIRATORY: Clear to auscultation. Breath sounds equal bilaterally. No wheezes, rales, or rhonchi. SKIN: warm, Dry, intact with no suspicious lesions or rash, good texture and turgor. NEURO: awake, alert, and oriented to person, place and time. There were no obvious focal neurologic abnormalities. EXTREMITIES: No joint tenderness, effusion, or edema noted. Course Course Emergency Course: Patient is aware of diagnosis, understands and agrees to treatment plan. Anticipatory guidance given. Patient agrees to follow-up as directed and is aware of reasons to seek care at the emergency department. Portions of this record may have been created with voice recognition software Level of Care: Express Care Visit Vital Signs Vital signs: Vital Signs Temperature 98.3 F 08/31/24 08:35 Pulse Rate 87 08/31/24 08:35 Respiratory Rate 14 08/31/24 08:35 Blood Pressure 115/60 08/31/24 08:35 Pulse Oximetry 100 08/31/24 08:35 Oxygen Delivery Room Air 08/31/24 08:35 Temperature 98.3 F 08/31/24 08:35 Pulse Rate 87 08/31/24 08:35 Respiratory Rate 14 08/31/24 08:35 Blood Pressure 115/60 08/31/24 08:35 Pulse Oximetry 100 08/31/24 08:35 Oxygen Delivery Room Air 08/31/24 08:35 Reviewed MDM - URI/Sore Throat MDM Narrative Medical decision making narrative: Rapid COVID and flu were negative. Rapid strep negative. Throat culture pending. Symptoms are likely viral in etiology. Discussed physical exam areli altamirano. Advised supportive measures and signs/symptoms to go to the ER. Pt is appropriate for outpt treatment and f/u. Differential Diagnosis Differential diagnosis: Likely upper respiratory infection, sinusitis and pharyngitis Lab Data Attestation: I reviewed the patient's lab results. Labs: Lab Results 08/31/24 Range/Units 08:57 POC Influenza A Ag Negative (Negative) POC Influenza B Ag Negative (Negative) POC SARS CoV-2 Ag Negative (Negative) POC Grp A Strep Screen Negative (Negative) Critical Care Time Critical Care Time Critical Care Time: No Discharge Plan Discharge Clinical Impression: Upper respiratory infection Qualifiers: URI type: unspecified viral URI Qualified Code(s): J06.9 - Acute upper respiratory infection, unspecified Patient Disposition: Home Condition: Stable Instructions: Antibiotic Form, Upper Respiratory Infection (ED) Additional Instructions: Your rapid COVID and flu were negative. Your rapid strep swab was negative t estela at [facility]. You will be notified in a few days if the culture comes back positive for strep, and appropriate antibiotics will be called in for you at that time. You may use Flonase as directed for nasal congestion. Your symptoms are likely due to a viral illness, which is not treated with antibiotics. Viral symptoms can be present for up to 10-14 days. Take Tylenol or ibuprofen for fever or pain. Rest and stay hydrated. Follow up with your PCP in 5 days if symptoms are not improving. Go to the ER immediately if you difficulty breathing or swallowing Patient Language: Rwandan Prescriptions: New fluticasone propionate [Flonase Allergy Relief] 50 mcg/actuation spray,suspension 2 spray intranasal DAILY Qty: 1 0RF Rx Instructions: administer into each nostril Follow-up/Referrals: Ryley,Travis Alcala Jr., MD [Primary Care Provider] - Stand Alone Forms: Work/School Release IP Time of Disposition: 09:06
== END 2024-08-31 09:10 | disposition home or self-care (01) ==
PROVIDERS: PCP Hospitalist
DX: J06.9 Acute upper respiratory infection, unspecified (principal); Z20.822 Contact with and (suspected) exposure to COVID-19
CPT/HCPCS: 87081; 87426; 87804; 87880; 99213; G0463

== ENCOUNTER 2024-09-11 17:11 | Emergency (ER) | payer BC, SELFPAY ==
[2024-09-11 17:18] VITALS: BP 103/60; PULSE 65; RESP 19; TEMP 37.1; O2SAT 99
--- NOTE | 2024-09-11 17:31 | ED_ITS ---
HPI - URI/Sore Throat General Chief Complaint: Upper Respiratory Infection Stated Complaint: Sore Throat/Congestion Source: patient Mode of arrival: ambulatory Limitations: no limitations History of Present Illness HPI Narrative: Patient is a 24-year-old female who presents to the clinic with complaints a congestion, sore throat, and cough for 2 weeks. She states that her son tested positive for strep throat today. She also works in elementary school. She denies any shortness on breath, fever, or difficulty swallowing. Related Data Allergies Allergy/AdvReac Type Severity Reaction Status Date / Time No Known Allergies Allergy Verified 09/11/24 17:24 Review of Systems Review of Systems: CONSTITUTIONAL: Denies body aches, fever, chills, or sweats. EYES: Denies visual changes, redness, or discharge. ENT: Reports sore throat and congestion. Denies rhinorrhea or otalgia. CARDIOVASCULAR: Denies chest pain, palpitations, or edema. RESPIRATORY: Denies dyspnea. GASTROINTESTINAL: Denies abdominal pain, nausea, vomiting, or diarrhea. SKIN: Denies rash. NEUROLOGIC: Denies headache All systems reviewed & are unremarkable except as noted in HPI and below PMFSH Past Medical History Medical History Psoriasis Heart murmur Family History Family History Other Unknown family medical history Social History Social History Smoking status: Never smoker Substance use: never Spiritual care concerns: No Comments At time of signature, I have reviewed and agree with nursing past medical, song rgical, social and family history unless otherwise noted. Please see nursing chart for further information. There is no relevant family history pertinent to the presenting complaint. Exam Narrative: GENERAL: Ill-appearing, ?no acute distress. EYES: ?Conjunctivae clear ENT: Mucous membranes moist. TM fluid filled, but intact. Oropharynx erythematous without lesions. Tonsils are not enlarged and without exudate. No drooling, no hoarseness, no trismus, uvula midline. No tripod positioning, hot potato voice, or soft palate swelling. NECK: Supple. No lymphadenopathy CHEST: Clear to auscultation, breath sounds equal. ?No respiratory distress, speaks in full sentences. HEART: Regular rate and rhythm. No murmur heard. SKIN: Warm, dry, no rash. NEURO: Alert and oriented x3.? Course Course Level of Care: Express Care Visit Vital Signs Vital signs: Vital Signs Temperature 98.7 F 09/11/24 17:18 Pulse Rate 65 09/11/24 17:18 Respiratory Rate 19 09/11/24 17:18 Blood Pressure 103/60 09/11/24 17:18 Pulse Oximetry 99 09/11/24 17:18 Oxygen Delivery Room Air 09/11/24 17:18 Temperature 98.7 F 09/11/24 17:18 Pulse Rate 65 09/11/24 17:18 Respiratory Rate 19 09/11/24 17:18 Blood Pressure 103/60 09/11/24 17:18 Pulse Oximetry 99 09/11/24 17:18 Oxygen Delivery Room Air 09/11/24 17:18 reviewed. MDM - URI/Sore Throat MDM Narrative Medical decision making narrative: Discussed physical exam findings. Antibiotic given for bacterial sinusitis. Advised supportive measures and signs/symptoms to go to the ER. Pt is appropriate for outpatient treatment and follow up. Differential Diagnosis Differential diagnosis: Likely upper respiratory infection, sinusitis, viral infection, bronchitis and other (strep throat) Critical Care Time Critical Care Time Critical Care Time: No Discharge Plan Discharge Clinical Impression: Sinusitis, bacterial Patient Disposition: Home Condition: Stable Instructions: Sinusitis (ED) Additional Instructions: Take antibiotic as prescribed. Recommend Flonase spray and Zyrtec (or Claritin/Nina) Tylenol every 8 hours as needed for pain Symptomatic treatment includes: rest, fluids, and increase humidity of the air at home. Follow up with your primary care provider in 1 week. Go to the ER for worsening symptoms or concerns. Patient Language: Hungarian Prescriptions: New amoxicillin-pot clavulanate 875-125 mg tablet 1 tablet PO Q12H 7 Days Qty: 14 0RF Follow-up/Referrals: Ryley,Travis Alcala Jr., MD [Primary Care Provider] - Stand Alone Forms: Work/School Release IP Time of Disposition: 17:49
[2024-09-11 17:49] LABS: EDSTREPNEGPOS1 Negative (Negative)
== END 2024-09-11 18:00 | disposition home or self-care (01) ==
PROVIDERS: PCP Hospitalist
DX: J32.9 Chronic sinusitis, unspecified (principal); B96.89 Other specified bacterial agents as the cause of diseases classified elsewhere
CPT/HCPCS: 87081; 87880; 99213; G0463

== ENCOUNTER 2025-02-14 08:08 | Emergency (ER) | payer BC, SELFPAY ==
[2025-02-14 08:17] VITALS: BP 110/59; PULSE 72; RESP 18; TEMP 36.4; O2SAT 97
--- NOTE | 2025-02-14 08:32 | ED_ITS ---
HPI - URI/Sore Throat General Chief Complaint: Upper Respiratory Infection Stated Complaint: sore throat Time Seen by Provider: 02/14/25 08:13 Source: patient and RN notes reviewed Mode of arrival: ambulatory Limitations: no limitations History of Present Illness HPI Narrative: 24-year-old female Patient presents today with a 3 day history of intermittent productive cough, headache, body aches, sore throat. Reports some chest tightness today and slight shortness of breath with exertion. Denies fever. She has been using Mucinex without improvement. Denies history of asthma or COPD. She is a nonsmoker. 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 Related Data Allergies Allergy/AdvReac Type Severity Reaction Status Date / Time No Known Allergies Allergy Verified 02/14/25 08:14 [facility] Past Medical History Medical History Psoriasis Heart murmur Family History Family History Other Unknown family medical history Social History Social History Smoking status: Never smoker Substance use: never Spiritual care concerns: No Comments At time of signature, I have reviewed and agree with nursing past medical, surgical, social and family history unless otherwise noted. Please see nursing chart for further information. There is no relevant family history pertinent to the presenting complaint Exam Narrative: GENERAL: Well-appearing, well-nourished, and in no acute distress. HEAD: Normocephalic, atraumatic. EYES: EOMI. No redness or drainage. Conjunctivae normal. ENT: Mucous membranes pink and moist. Nares mildly congested. No rhinorrhea. TMs normal bilaterally. Throat mildly erythematous without edema or exudate. Uvula midline. NECK: Normal AROM. Supple. No lymphadenopathy. CHEST: No respiratory distress. Clear to auscultation. HEART: Regular rate and rhythm. No murmur appreciated. EXTREMITIES: Normal range of motion. No edema. SKIN: Warm, dry, no rash. Capillary refill normal. Normal skin turgor. NEURO: No focal deficits. Alert and oriented x3. Gait steady. PSYCH: Normal affect. No signs of depression or anxiety. Course Course Level of Care: Express Care Visit Vital Signs Vital signs: Vital Signs Temperature 97.5 F L 02/14/25 08:17 Pulse Rate 72 02/14/25 08:17 Respiratory Rate 18 02/14/25 08:17 Blood Pressure 110/59 L 02/14/25 08:17 Pulse Oximetry 97 02/14/25 08:17 Oxygen Delivery Room Air 02/14/25 08:17 Temperature 97.5 F L 02/14/25 08:17 Pulse Rate 72 02/14/25 08:17 Respiratory Rate 18 02/14/25 08:17 Blood Pressure 110/59 L 02/14/25 08:17 Pulse Oximetry 97 02/14/25 08:17 Oxygen Delivery Room Air 02/14/25 08:17 Reviewed MDM - URI/Sore Throat MDM Narrative Medical decision making narrative: 24-year-old female Patient presents today with a 3 day history of intermittent productive cough, headache, body aches, sore throat. Reports some chest tightness today and slight shortness of breath with exertion. Denies fever. She has been using Mucinex without improvement. Upon exam, patient has some mild nasal congestion and erythema in the throat otherwise negative. Rapid strep, COVID-19, and influenza negative. Strep culture pending. Symptoms likely viral in etiology. Discussed [id number] medication use and duration of illness. To help with patient's chest tightness and intermittent shortness of breath, will treat with an albuterol inhaler as well as some Tessalon Perles. Patient agrees with plan. Anticipatory guidance given. Differential Diagnosis Differential diagnosis: Likely upper respiratory infection, viral infection, influenza, pharyngitis and other (Strep throat, COVID-19) Lab Data Attestation: I reviewed the patient's lab results. Lab results narrative: Rapid strep negative. Influenza negative. COVID negative. Critical Care Time Critical Care Time Critical Care Time: No Discharge Plan Discharge Clinical Impression: Upper respiratory infection Qualifiers: URI type: unspecified URI Qualified Code(s): J06.9 - Acute upper respiratory infection, unspecified Patient Disposition: Home Condition: Stable Instructions: Upper Respiratory Infection (DC) Additional Instructions: Your influenza, COVID-19, and rapid strep swab were negative today at [facility]. You will be notified in a few days if the culture comes back positive for strep, and appropriate antibiotics will be called in for you at that time. Your symptoms are likely due to a viral illness, which is not treated with antibiotics. Viral symptoms can be present for up to 7-10 days. Take Tylenol or ibuprofen for fever or pain. Use albuterol inhaler and Tessalon Perles as directed. Rest and stay hydrated. Follow up with your PCP in 7 days if symptoms are not improving. Go to the ER immediately if you have any difficulty breathing or swallowing. Patient Language: Macedonian Prescriptions: New benzonatate 200 mg capsule 200 mg PO TID PRN (Reason: cough) Qty: 20 0RF albuterol sulfate 90 mcg/actuation HFA aerosol inhaler 2 inh inhalation Q4-6H PRN (Reason: shortness of breath or wheezing) Qty: 8.5 0RF (DME) BreatheRite MDI Spacer Spacer See Rx Instructions .ROUTE .MEDSUPPLY Qty: 1 0RF Rx Instructions: As directed Follow-up/Referrals: Ryley,Travis Alcala Jr., MD [Primary Care Provider, Unknown] Stand Alone Forms: Work/School Release IP Time of Disposition: 08:44
[2025-02-14 08:57] LABS: EDCOVIDSCREEN Negative (Negative); EDINFLUASCREEN Negative (Negative); EDINFLUBSCREEN Negative (Negative); EDSTREPNEGPOS1 Negative (Negative)
== END 2025-02-14 08:50 | disposition home or self-care (01) ==
PROVIDERS: Emergency Provider Nurse Practitioner; PCP Hospitalist
DX: J06.9 Acute upper respiratory infection, unspecified (principal); Z20.822 Contact with and (suspected) exposure to COVID-19; L40.9 Psoriasis, unspecified; R01.1 Cardiac murmur, unspecified
CPT/HCPCS: 87081; 87426; 87804; 87880; 99213; G0463